=== PATIENT | female | born 1955 | race Caucasian/White ===

== ENCOUNTER 2024-04-18 08:18 | Outpatient (CLI) | payer MEDICARE, SELFPAY ==
--- NOTE | ~2024-04-18 | MM_ITS ---
EXAMINATION: MM screening jose luis BI w aldair HISTORY: Screening TECHNIQUE: Craniocaudal and mediolateral oblique 3-D tomosynthesis images were obtained and synthetic 2-D images were generated. CAD analysis was submitted and interpreted. COMPARISON: Comparison to multiple prior studies sequentially, with oldest reviewed study dated 11/2011. BREAST PARENCHYMAL COMPOSITION: Not dense: There are scattered areas of fibroglandular density. FINDINGS: There is no evidence of suspicious mass, calcification, or architectural distortion to sugg est malignancy in either breast. There has been no suspicious interval change. IMPRESSION: 1. No mammographic evidence of malignancy. 2. Recommend routine screening mammography in one year. BI-RADS Category 1: Negative Reviewed, dictated and finalized at location B.
== END 2024-04-18 08:19 | disposition home or self-care (01) ==
DX: Z12.31 Encounter for screening mammogram for malignant neoplasm of breast (principal)
CPT/HCPCS: 77063; 77067

== ENCOUNTER 2024-04-29 09:04 | Outpatient (CLI) | payer MEDICARE, SELFPAY ==
[2024-04-29 09:51] LABS: Hematocrit 40.8 % (35.0-42.0); Hemoglobin 13.7 g/dL (11.7-13.8); Mean Corpuscular HGB Conc 33.6 g/dL (32-36); Mean Corpuscular Hemoglobin 33.3 pg (27.0-31.0); Mean Platelet Volume 10.1 fl (9.2-11.8); Platelet Count Result 221 K/mm3 (150-420); Red Blood Count 4.12 M/mm3 (4.20-5.40); Red Cell Distribution Width 12.2 % (11.6-14.4); White Blood Count 7.6 K/mm3 (4.8-10.8)
[2024-04-29 10:27] LABS: Hemoglobin A1C 5.3 % (<5.7)
[2024-04-29 10:44] LABS: Alanine Aminotransferase 41 U/L (14-59); Alkaline Phosphatase 99 U/L (46-116); Anion Gap 7 mmol/L (4-12); Aspartate Amino Transferase 37 U/L (15-37); Bilirubin,Total 0.5 mg/dL (0.00-1.00); Blood Urea Nitrogen 16 mg/dL (7-18); Calcium 8.9 mg/dL (8.5-10.1); Carbon Dioxide 30 mmol/L (21-32); Chloride 104 mmol/L (98-108); Estimated Glomerular Filt Rate 49; Ferritin 106 ng/mL (8-252); Glucose 108 mg/dL (70-99); Iron 97 ug/dL (50-170); Osmolality Calculated 294 mOsm/kg (285-295); Percent Iron Saturation 32 % (12-57); Potassium 4.1 mmol/L (3.5-5.1); Sodium 141 mmol/L (136-145); Total Protein 7.2 g/dL (6.4-8.2)
[2024-05-04 06:08] LABS: Vitamin D 25 Hydroxy 67 ng/mL (30-100)
== END 2024-04-29 09:05 | disposition home or self-care (01) ==
LOC: CHSLAB 09:11
DX: R79.89 Other specified abnormal findings of blood chemistry (principal); K76.0 Fatty (change of) liver, not elsewhere classified; R73.9 Hyperglycemia, unspecified; I10 Essential (primary) hypertension; Z78.0 Asymptomatic menopausal state; Z79.899 Other long term (current) drug therapy
CPT/HCPCS: 36415; 80053; 82306; 82728; 83036; 83540; 83550; 85027

== ENCOUNTER 2024-10-30 08:37 | Emergency (ER) | payer MEDICARE, SELFPAY ==
[2024-10-30 08:41] VITALS: BP 141/82; PULSE 66; RESP 18; TEMP 36.6; O2SAT 100
--- NOTE | 2024-10-30 08:48 | ED.SYNCOPE ---
HPI - Syncope General Chief Complaint: Syncope Stated Complaint: syncope Time Seen by Provider: 10/30/24 08:45 Source: patient Mode of arrival: ambulatory Limitations: no limitations History of Present Illness HPI narrative: patient is a 68-year-old female who was at adventism and was getting up from a sitting position and collapsed for 30 seconds witnessed by family. No seizure activity. This was a syncopal episode. No injuries. No head or neck injuries. No other injuries. She has no chest pain or shortness of breath. She does have cough and congestion and just generalized malaise for the past 2-3 days. MD complaint: loss of consciousness, felt faint and collapsed Onset (ago): minute(s) Duration of episode: 30 -: second(s) Description of event: other ( simple syncope without injuries or related changes to the body) Prodromal symptoms: none Witnessed: Yes - by Bystander Context: at rest and standing up Injuries sustained associated with event: none Current symptoms: other ( generalized malaise and cough with congestion and not feeling well over the past 2-3 days) History: other ( none) Treatments prior to arrival: none Related Data Allergies Allergy/AdvReac Type Severity Reaction Status Date / Time No Known Allergies Allergy Verified 10/30/24 08:45 Review of Systems Review of Systems: All systems reviewed & are unremarkable except as noted in HPI and below Constitutional: Constitutional: Reports no additional constitutional complaints Eyes: Eyes: Reports no additional eye complaints ENT: Reports system reviewed and no additional complaints, except as documented Cardiovascular: Cardiovascular: Reports no additional cardiovascular complaints Respiratory: Respiratory: Reports no additional respiratory complaints Gastrointestinal: Gastrointestinal: Reports no additional gastrointestinal complaints Genitourinary: Genitourinary: Reports no additional female genitourinary complaints Musculoskeletal: Musculoskeletal: Reports no additional musculoskeletal complaints Integumentary/Breasts: Skin/Breast: Reports system reviewed and no additional complaints, except as docu Neurologic: Reports system reviewed and no additional complaints, except as documented Psychiatric: Psychiatric: Reports no additional psychiatric complaints Endocrine: Endocrine: Reports no additional endocrine complaints Hematologic/Lymphatic: Hematologic/Lymphatic: Reports no additional hematologic/lymphatic complaints Allergic/Immunologic: Allergic/Immunologic: Reports no additional allergic/immunologic complaints Exam Const: General: ill appearing Nutritional Appearance: well nourished Orientation/consciousness: patient oriented x3 Limitations: no limitations HENMT: Head: normal to inspection Ears: external ears normal Face/Nose/Sinus: Normal external nose present Eyes: Conjunctivae: conjunctivae normal Pupils: Equal, round and reactive pupils present EOM: EOMs intact bilaterally Direct Ophthalmoscopy: no photophobia Neck: Neck: normal visual inspection Chest: Chest palpation & inspection: normal inspection of the chest Resp: Effort & Inspection: normal respiratory effort and not labored Auscultation: clear to auscultation bilaterally and no crackles Cardio: Rate: regular rate Rhythm: regular rhythm Heart sounds: no murmurs GI: Inspection: non-distended GI Palp: Yes Soft to palpation and No Tenderness to palpation present (GI) Auscultation: normal bowel sounds : General: Yes bladder normal to palpation Back/Spine/Pelvis: Back: no CVA tenderness and No CVA tenderness Cervical Spine: collar present Skin: General skin exam: normal color Rashes: no rashes Wounds: no wounds Neuro: General: patient oriented x3 Cranial nerves: Yes Nystagmus not present Speech: normal speech Gait exam (Neuro): Normal gait present Other: fast exam negative, NIH is 0, GCS is 15 Extrem: General: normal to inspection Psych: Mental Status: mental status grossly normal Affect: normal affect Attitude: cooperative Course Vital Signs Vital signs: Vital Signs Temperature 36.6 C 10/30/24 08:41 Pulse Rate 66 10/30/24 08:41 Respiratory Rate 18 10/30/24 08:41 Blood Pressure 141/82 H 10/30/24 08:41 Pulse Oximetry 100 10/30/24 08:41 Oxygen Delivery Room Air 10/30/24 08:41 Temperature 36.6 C 10/30/24 08:41 Pulse Rate 66 10/30/24 08:41 Respiratory Rate 18 10/30/24 08:41 Blood Pressure 141/82 H 10/30/24 08:41 Pulse Oximetry 100 10/30/24 09:06 Oxygen Delivery Room Air 10/30/24 09:06 MDM - Syncope MDM Narrative Medical decision making narrative: patient is a 68-year-old female with not feeling well as well as a syncopal episode today. We will do a COVID swab panel today. We will check CT head and EKG as well. Lab Data Attestation: I reviewed the patient's lab results. Labs: Lab Results 10/30/24 10/30/24 Range/Units 08:40 08:57 Urine Color Yellow (Yellow) Urine Appearance Clear (Clear) Urine pH 6.0 (5.0-8.0) Ur Specific [place] >= 1.030 H (1.010-1.020) Urine Protein 2+ H (Negative) Urine Glucose (UA) Negative (Negative) Urine Ketones Negative (Negative) Ur Blood (Man) Negative (Negative) Urine Nitrate Negative (Negative) Urine Bilirubin Negative (Negative) Urine Urobilinogen 0.2 (0.2-1.0) mg/dL Leukocyte Esterase Rfl Negative (Negative) GO/UL Urine RBC None seen (0-2) /hpf Urine WBC None seen (0-3) /hpf Ur Squamous Epith Cells Rare (Few) /hpf Urine Bacteria Trace (None) /hpf Hyaline Casts 1-2 (None) /lpf Urine Mucus Moderate H /lpf Influenza A (RT-PCR) Positive A (Negative) Influenza B (RT-PCR) Negative (Negative) RSV (RT-PCR) Negative (Negative) SARS-CoV-2 RNA (RT-PCR) Negative (Negative) Imaging Data Attestation: I personally reviewed and interpreted this imaging study as follows: Radiologist's impression: CT head was negative for acute process ECG Data EKG #1: Attestation: I personally reviewed and interpreted this ECG as follows: ECG completion date: 10/30/24 ECG completion time: 09:09 EKG Interpretation: normal rate, sinus rhythm, no ectopy, non-specific ST changes, normal QRS, normal QT and NL axis EKG #2: Attestation: I personally reviewed and interpreted this ECG as follows: ECG completion date: 10/30/24 ECG completion time: 09:40 EKG Interpretation: normal rate, sinus rhythm, no ectopy, non-specific ST changes, normal QRS, normal QT and left axis Discharge Plan Discharge Clinical Impression: Vasovagal syncope, Influenza A Patient Disposition: Home, Self-Care Condition: Stable Instructions: Syncope (DC), Influenza (DC) Additional Instructions: please follow-up with the primary doctor in the next week. If recurrent syncope or similar symptoms occur, further neurological / cardiac workup should be done with the primary doctor. Patient Language: Hungarian Follow-up/Referrals: UNKNOWN,DOCTOR [Non-Staff] - Time of Disposition: 09:43
[2024-10-30 09:00] VITALS: BP 132/77; PULSE 66; RESP 16; O2SAT 97
--- NOTE | 2024-10-30 09:02 | PC.NURSE ---
Covid culture sent to lab
[2024-10-30 09:06] VITALS: O2SAT 100
[2024-10-30 09:15] LABS: Add Urine Microscopic? YES; Appearance Urine Clear (Clear); Bilirubin Urine Negative (Negative); Blood Urine Negative (Negative); Color Urine Yellow (Yellow); Glucose Urine UA Negative (Negative); Ketones Urine Negative (Negative); Leukocyte Esterase Ur Negative LEU/UL (Negative); Nitrate Urine Negative (Negative); Protein Urine 2+ (Negative); Specific Grav Ur >= 1.030 (1.010-1.020); Urobilinogen Urine 0.2 mg/dL (0.2-1.0)
[2024-10-30 09:22] LABS: Influenza A QL RT-PCR Positive (Negative); Influenza B QL RT-PCR Negative (Negative); RSV RNA, RT-PCR Negative (Negative); SARS-CoV-2 RNA PCR Negative (Negative)
[2024-10-30 09:22] LABS: Bacteria Urine Trace /hpf; Mucus Urine Moderate /lpf; RBC Urine None seen /hpf (0-2); Squamous Epithelial Cell Urine Rare /hpf (Few); WBC Urine None seen /hpf (0-3)
[2024-10-30 09:30] VITALS: BP 132/85; PULSE 66; RESP 17; O2SAT 96
[2024-10-30 10:00] VITALS: BP 132/81; PULSE 67; RESP 17; O2SAT 96
[2024-10-30 10:11] VITALS: BP 132/81; PULSE 63; RESP 18; TEMP 36.9; O2SAT 96
== END 2024-10-30 10:11 | disposition home or self-care (01) ==
LOC: CHSED 09:50
PROVIDERS: Emergency Provider Emergency Medicine
DX: J10.1 Influenza due to other identified influenza virus with other respiratory manifestations (principal); R55 Syncope and collapse; Z20.822 Contact with and (suspected) exposure to COVID-19
CPT/HCPCS: 70450; 81001; 87637; 93005; 99284

== ENCOUNTER 2025-04-17 07:45 | Outpatient (CLI) | payer MEDICARE, SELFPAY ==
[2025-04-17 08:12] LABS: Hematocrit 41.9 % (35.0-42.0); Hemoglobin 14.0 g/dL (11.7-13.8); Mean Corpuscular HGB Conc 33.4 g/dL (32-36); Mean Corpuscular Hemoglobin 32.9 pg (27.0-31.0); Mean Corpuscular Volume 98.6 fL (78.0-102.0); Platelet Count Result 207 K/mm3 (150-420); Red Blood Count 4.25 M/mm3 (4.20-5.40); White Blood Count 6.6 K/mm3 (4.8-10.8)
[2025-04-17 08:52] LABS: Alanine Aminotransferase 45 U/L (6-35); Albumin Level 4.5 g/dL (3.5-5.1); Alkaline Phosphatase 80 U/L (38-126); Anion Gap 5 mmol/L (4-12); Aspartate Amino Transferase 51 U/L (14-36); Bilirubin,Total 0.6 mg/dL (0.2-1.3); Blood Urea Nitrogen 15 mg/dL (7-17); Calcium 9.5 mg/dL (8.4-10.2); Carbon Dioxide 31 mmol/L (22-30); Chloride 106 mmol/L (98-107); Cholesterol 139 mg/dL (0-200); Estimated Glomerular Filt Rate 47; Glucose 115 mg/dL (65-110); Osmolality Calculated 295 mOsm/kg (285-295); Potassium 5.4 mmol/L (3.4-5.0); Sodium 142 mmol/L (137-145); Total Protein 7.1 g/dL (6.3-8.2); Triglycerides 141 mg/dL (<150)
[2025-04-17 09:01] LABS: Hemoglobin A1C 5.7 % (<5.7)
[2025-04-17 09:30] LABS: Ferritin 169.00 ng/mL (11.1-264)
[2025-04-17 10:13] LABS: HDL Direct 64 mg/dL
== END 2025-04-17 07:46 | disposition home or self-care (01) ==
LOC: CHSLAB 07:49
DX: Z78.0 Asymptomatic menopausal state (principal); R79.0 Abnormal level of blood mineral; Z79.899 Other long term (current) drug therapy; R79.9 Abnormal finding of blood chemistry, unspecified
CPT/HCPCS: 36415; 80053; 80061; 82306; 82728; 83036; 85027

== ENCOUNTER 2025-04-20 12:46 | Outpatient (CLI) | payer MEDICARE, SELFPAY ==
--- NOTE | ~2025-04-20 | MM_ITS ---
EXAMINATION: MM screening jose luis BI w aldair HISTORY: Screening mammogram, family history of breast cancer in her sister. TECHNIQUE: Craniocaudal and mediolateral oblique 3-D tomosynthesis images were obtained and synthetic 2-D images were generated. CAD analysis was submitted and interpreted. COMPARISON: 04/18/2024 BREAST PARENCHYMAL COMPOSITION:Not Dense. There are scattered areas of fibroglandular density. FINDINGS: No suspicious mass, calcification, or architectural distortion are identified in either breast to suggest malignancy. There has been no suspicious interval change. IMPRESSION: No mammographic evidence of malignancy. Recommend routine screening mammography in one year. BI-RADS Category 1: Negative Reviewed, dictated and finalized at location .
--- OUTSIDE RECORDS SUMMARY | 2025-04-20 12:54 | XMS_ITS | Clinical Summary ---
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 Pulse 80 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 Regu lar Temperature - - Respiratory Rate 18 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 Oxygen Saturation - - Inhaled Oxygen Concentration - - Weight 71.2 kg (157 lb) 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 Height 165.1 cm (5' 5) 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 Body Mass Index 26.13 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 Plan of Treatment Health Maintenance Due Date Last Done Comments Colorectal Cancer Screening Colonoscopy (10 Years) 1953 Hepatitis C 12/15/1971 DTaP, Tdap and Td Vaccines (1 - Tdap) 1972 Mammogram Screening 1993 Annual Medicare Wellness Visit 2018 Dexa Scan (General) 2018 Pneumococcal Vaccine: 50+ Years (2 of 2 - PPSV23) 12/25/2019 12/24/2018 COVID-19 Vaccine (3 - season) 2024 10/24/2020, 09/21/2020 RSV Immunization or 60+ Years (1 - 1-dose 75+ series) 2028 Zoster Vaccines Completed 07/31/2018, 100 03/2018, 10/12/2017, Additional history exists Meningococcal B Vaccine Aged Out No l onger eligible based on patient's age to complete this topic Meningococcal Vaccine Aged Out No thao rivera eligible based on patient's age to complete this topic RSV Immunizations Under 20 Months Aged Out No longer eligible based on patient's age to complete this topic Insurance MEDICARE [employer] Care Teams Bottom Liner Relationship Specialty Start Date End Date Raman Bray MD [address] [place] [address] PCP - General FAMILY PRACTICE 04/10/21
== END 2025-04-20 12:47 | disposition home or self-care (01) ==
DX: Z12.31 Encounter for screening mammogram for malignant neoplasm of breast (principal)
CPT/HCPCS: 77063; 77067